=== PATIENT | female | born 1975 | race Caucasian/White ===

== ENCOUNTER 2018-01-06 22:34 | Emergency (ER) | payer OTHER ==
[2018-01-06] MEDS ORDERED: DERMABOND SKIN ADHESIVE TOP ONE (23:25)
[2018-01-06] MEDS ORDERED: IBUPROFEN 400 MG TAB ONE (23:34)
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
== END 2018-01-07 | disposition home or self-care (01) ==
LOC: ER 22:34
PROC: 0HQGXZZ Repair Left Hand Skin, External Approach (ICD-10-PCS; principal; 2018-01-06)
DX: S61.412A Laceration without foreign body of left hand, initial encounter (principal); W26.8XXA Contact with other sharp object(s), not elsewhere classified, initial encounter; Y92.019 Unspecified place in single-family (private) house as the place of occurrence of the external cause; Z88.5 Allergy status to narcotic agent; E78.00 Pure hypercholesterolemia, unspecified; I10 Essential (primary) hypertension; E11.9 Type 2 diabetes mellitus without complications; Z79.84 Long term (current) use of oral hypoglycemic drugs; F17.210 Nicotine dependence, cigarettes, uncomplicated
CPT/HCPCS: 99283

== ENCOUNTER 2018-03-09 16:23 | Emergency (ER) | payer OTHER ==
--- NOTE | 2018-03-09 18:20 | RAD REPORT ---
EXAM DESCRIPTION: RAD - Chest Pa And Lat (2 Views) - 03/09/2018 6:14 pm CLINICAL HISTORY: Left-sided chest pain for 2 weeks, no history of chest trauma COMPARISON: None. TECHNIQUE: PA and lateral views of the chest were obtained. FINDINGS: The lungs are clear. Heart size is normal and central vasculature is within normal limit s. No pleural effusion or pneumothorax seen. An acute bone process is not suspected. There is defor mity in the contour and curvature of the left fifth rib. There may be anterior fusion of the left fou rth and fifth ribs contributing to this abnormality. An acute fracture or rib deformity is not suspec rosina. No aortic abnormality. IMPRESSION: Old developmental or posttraumatic deformity to the left fifth rib. Acute rib process is unlikely. No acute pleural or parenchymal process.
[2018-03-09] MEDS ORDERED: DIAZEPAM 5 MG TABLET ONE (18:27)
[2018-03-09] MEDS ORDERED: KETOROLAC 30 MG/ML INJ ONE (18:28)
[2018-03-09] MEDS ORDERED: NA CHLORIDE 0.9% 1,000 ML ONE (20:16)
[2018-03-09 20:52] LABS: Absolute Lymphocytes (CBC) 2.4 K/uL (0.7-4.9); Absolute Monocytes 0.6 K/uL (0.1-1.3); Absolute Neutrophil 11.3 K/uL (1.8-8.0); Basophils % 0.5 % (0-1.3); Eosinophils % 1.5 % (0-4.4); Hematocrit 44.4 % (36.0-45.0); Lymphocytes % 16.3 % (15.3-44.8); MCH 30.4 pg (27.0-35.0); MCV 88.1 fL (80-100); MPV 7.5 fL (7.6-11.3); Monocytes % 3.8 % (3.3-12.3); RBC Red Blood Cell Count 5.04 M/uL (3.86-4.86)
[2018-03-09 21:07] LABS: Potassium 3.8 mmol/L (3.5-5.1)
[2018-03-09 21:27] LABS: Urine Blood 2+ (NEG); Urine Glucose 2+ (NEG); Urine Protein NEGATIVE (NEG); Urine Specific Gravity 1.025 (1.005-1.030); Urine pH 5.5 (5.0-7.0)
--- NOTE | 2018-03-09 21:38 | RAD REPORT ---
EXAM DESCRIPTION: CT - Chest For Pe Angio - 03/09/2018 9:29 pm CLINICAL HISTORY: Left-sided chest and rib pain COMPARISON: Chest films same TECHNIQUE: Dynamically enhanced 3 mm thick images of the chest were obtained during administration o f approximately 150mL Isovue 370 IV contrast. Coronal and oblique reconstruction images were generate d and reviewed. Exam utilizes a protocol to evaluate the pulmonary arterial tree. All CT scans are performed using dose optimization technique as appropriate and may include automated exposure control or mA/KV adjustment according to patient size. FINDINGS: No pulmonary emboli are identified. The aorta as imaged shows no acute or suspicious finding. No pericardial thickening or effusion. No infiltrate or mass in the lung parenchyma. No pleural effusion or pleural thickening. No mediastinal or hilar suspicious masses. No chest wall masses or abnormal axillary lymphadenopathy. Patient has a normal variant developmental variant of the left fifth rib. There is no suspicion that this is a source for patient's symptoms. IMPRESSION: No pulmonary emboli identified. No other significant or suspicious findings.
--- NOTE | 2018-03-09 21:54 | EDPHYS ---
Physician Documentation [facility] Name: Ava Multani Age: 43 yrs Sex: Female : 1975 Arrival Date: 03/09/2018 Time: 16:26 Bed 18 Private MD: LOUANN VALENZUELA ED Physician Richard Miller HPI: 03/09 20:18 This 43 yrs old Female presents to ER via Ambulatory with complaints of snw Shoulder Pain, RIB PAIN. 20:19 The patient or guardian reports chest pain that is located primarily in the left snw lateral anterior chest. Onset: The symptoms/episode began/occurred suddenly, 3 day(s) ago, and became persistent. The pain does not radiate. Associated signs and symptoms: Pertinent positives: cough, shortness of breath. The chest pain is described as sharp, stabbing. Duration: The patient or guardian reports multiple episodes. Severity of pain: At its worst the pain was severe. The patient has not experienced similar symptoms in the past. The patient has not recently seen a physician. + smoker. 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 - Social history:: Smoking status: Patient uses tobacco products, smokes one pack cigarettes per day. - Ebola Screening: : No symptoms or risks identified at this time. ROS: 20:17 Constitutional: Negative for fever, chills, and weight loss, Eyes: Negative for injury, snw pain, redness, and discharge, ENT: Negative for injury, pain, and discharge, Neck: Negative for injury, pain, and swelling, Cardiovascular: Negative for chest pain, palpitations, and edema, Abdomen/GI: Negative for abdominal pain, nausea, vomiting, diarrhea, and constipation, Back: Negative for injury and pain, : Negative bleeding, discharge, and swelling, MS/Extremity: Negative for injury and deformity, pain to left lateral chest wall Skin: Negative for injury, rash, and discoloration, Neuro: Negative for headache, weakness, numbness, tingling, and seizure. 20:17 Respiratory: Positive for cough, shortness of breath, 2 week coughing spell, feels she may have broken a rib. Exam: 19:21 Constitutional: This is a well developed, well nourished patient who is awake, alert, snw and in no acute distress. Head/Face: Normocephalic, atraumatic. Eyes: Pupils equal round and reactive to light, extra-ocular motions intact. Lids and lashes normal. Conjunctiva and sclera are non-icteric and not injected. Cornea within normal limits. Periorbital areas with no swelling, redness, or edema. ENT: Nares patent. No nasal discharge, no septal abnormalities noted. Tympanic membranes are normal and external auditory canals are clear. Oropharynx with no redness, swelling, or masses, exudates, or evidence of obstruction, uvula midline. Mucous membranes moist. Neck: Trachea midline, no thyromegaly or masses palpated, and no cervical lymphadenopathy. Supple, full range of motion without nuchal rigidity, or vertebral point tenderness. No Meningismus. Cardiovascular: Regular rate and rhythm with a normal S1 and S2. No gallops, murmurs, or rubs. Normal PMI, no JVD. No pulse deficits. Abdomen/GI: Soft, non-tender, with normal bowel sounds. No distension or tympany. No guarding or rebound. No evidence of tenderness throughout. Back: No spinal tenderness. No costovertebral tenderness. Full range of motion. Skin: Warm, dry with normal turgor. Normal color with no rashes, no lesions, and no evidence of cellulitis. MS/ Extremity: Pulses equal, no cyanosis. Neurovascular intact. Full, normal range of motion. Neuro: Awake and alert, GCS 15, oriented to person, place, time, and situation. Cranial nerves II-XII grossly intact. Motor strength 5/5 in all extremities. Sensory grossly intact. Cerebellar exam normal. Normal gait. Psych: Awake, alert, with orientation to person, place and time. Behavior, mood, and affect are within normal limits. 19:21 Chest/axilla: Inspection: normal, Palpation: tenderness, that is moderate, of the left lateral anterior chest, that partially reproduces the patient's complaints. 19:21 Respiratory: mild respiratory distress is noted, Respirations: shallow respirations, splinting, that is moderate, Breath sounds: are clear throughout, Respiratory rate: 22 Vital Signs: 17:01 BP 153 / 91; Pulse 99; Resp 22 S; Temp 97.3(O); Pulse Ox 98% on R/A; Weight 86.18 kg jl7 (R); Height 5 ft. 0 in. (152.40 cm) (R); Pain 10/10; 17:55 BP 160 / 100; Pulse 92; Resp 22; Pulse Ox 96% on R/A; Pain 9/10; ch 20:20 BP 144 / 78; Pulse 75; Resp 19 S; Pulse Ox 98% on R/A; jd3 22:17 BP 131 / 75; Pulse 85; Resp 17 S; Pulse Ox 99% on R/A; jd3 17:01 Body Mass Index 37.11 (86.18 kg, 152.40 cm) jl7 MDM: 17:32 Patient medically screened. snw 20:26 Data reviewed: vital signs, nurses notes. Data interpreted: Pulse oximetry: on room air snw is 98 %. Interpretation: normal. Counseling: I had a detailed discussion with the patient and/or guardian regarding: the historical points, exam findings, and any diagnostic results supporting the discharge/admit diagnosis, the presence of at least one elevated blood pressure reading (>120/80) during this emergency department visit, radiology results. 03/09 20:27 Order name: CBC with Diff; Complete Time: 21:18 snw 03/09 20:27 Order name: Chem 7; Complete Time: 21:18 snw 03/09 17:33 Order name: Chest Pa And Lat (2 Views) XRAY; Complete Time: 18:21 snw 03/09 18:24 Order name: CT Chest For PE Angio; Complete Time: 21:46 snw 03/09 21:26 Order name: Urine Dipstick--Ancillary (enter results); Complete Time: 21:30 rg2 03/09 21:26 Order name: Urine --Ancillary (enter results); Complete Time: 21:30 rg2 03/09 20:27 Order name: Urine Test (obtain specimen); Complete Time: 21:38 snw 03/09 21:55 Order name: INCENTIVE SPIROMETRY snw Administered Medications: 18:05 Drug: TORadol 60 mg Route: IM; Site: right gluteus; ch 19:00 Follow up: Response: No adverse reaction jd3 18:05 Drug: Valium 5 mg Route: PO; ch 19:00 Follow up: Response: No adverse reaction jd3 20:14 Drug: NS 0.9% 1000 ml Route: IV; Rate: 1 bolus; Site: left antecubital; jd3 21:30 Follow up: Response: No adverse reaction; IV Status: Completed infusion; IV Intake: jd3 1000ml 22:05 Drug: Tussionex Pennkinetic ER 5 ml Route: PO; jd3 22:17 Follow up: Response: No adverse reaction jd3 Disposition: 03/10 11:41 Co-signature as Attending Physician, Richard Miller MD I agree with the assessment and [facility] plan of care. Disposition: 03/09/18 21:53 Discharged to Home. Impression: Cough, Clinical rib fracture. - Condition is Stable. - Discharge Instructions: Rib Contusion, Cool Mist Vaporizer, Incentive Spirometer, Cough, Adult, [id number]. - Prescriptions for Zyrtec 10 mg Oral Tablet - take 1 tablet by ORAL route once daily As needed; 20 tablet. Diclofenac Sodium 75 mg Oral Tablet Sustained Release - take 1 tablet by ORAL route 2 times per day; 30 tablet. orphenadrine citrate 100 mg Oral Tablet Sustained Release - take 1 tablet by ORAL route 2 times per day As needed; 20 tablet. - Work release form, Medication Reconciliation Form, Thank You Letter, Antibiotic Education, Prescription Opioid Use form. - Follow up: LOUANN VALENZEULA; When: 1 - 2 days; Reason: Recheck today's complaints, Continuance of care, Re-evaluation by your physician. Follow up: Emergency Department; When: As needed; Reason: Worsening of condition. Signatures: Dispatcher [employer] EDMS Rina Stoll, RN Richard Tan ch, MD MD cha Therrien, Shelly, GAS TURBINE POWERPLANT MECHANIC-C GAS TURBINE POWERPLANT MECHANIC-Csnw James Null RN RN jl7 Tomas Nicole RN RN jd3 Corrections: (The following items were deleted from the chart) 03/09 22:18 21:53 03/09/2018 21:53 Discharged to Home. Impression: Cough; Clinical rib fracture. jd3 Condition is Stable. Forms are Medication Reconciliation Form, Thank You Letter, Antibiotic Education, Prescription Opioid Use. Follow up: LOUANN VALENZUELA; When: 1 - 2 days; Reason: Recheck today's complaints, Continuance of care, Re-evaluation by your physician. Follow up: Emergency Department; When: As needed; Reason: Worsening of condition. snw
--- NOTE | 2018-03-09 21:54 | ER ---
Nurse's Notes [facility] Name: Ava Multani Age: 43 yrs Sex: Female : 1975 Arrival Date: 03/09/2018 Time: 16:26 Bed 18 Private MD: LOUANN VALENZUELA Diagnosis: Cough;Clinical rib fracture Presentation: 03/09 16:58 Presenting complaint: Patient states: Left rib/side pain x 2 weeks. Reports coughing jl7 for 2 weeks, denies trauma, denies shortness of breath. Transition of care: patient was not received from another setting of care. Onset of symptoms was February 25, 2018. Risk Assessment: Do you want to hurt yourself or someone else? Patient reports no desire to harm self or others. Initial Sepsis Screen: Does the patient meet any 2 criteria? No. Patient's initial sepsis screen is negative. Does the patient have a suspected source of infection? No. Patient's initial sepsis screen is negative. Care prior to arrival: None. 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 - Social history:: Smoking status: Patient uses tobacco products, smokes one pack cigarettes per day. - Ebola Screening: : No symptoms or risks identified at this time. Screenin:42 Abuse screen: Denies threats or abuse. Denies injuries from another. Nutritional ch screening: No deficits noted. Tuberculosis screening: No symptoms or risk factors identified. Fall Risk None identified. Assessment: 17:42 General: Appears in no apparent distress. comfortable, Behavior is calm, cooperative, ch appropriate for age. Pain: Pain currently is 7 out of 10 on a pain scale. Neuro: No deficits noted. Respiratory: Airway is patent Respiratory effort is even, unlabored, Breath sounds are clear bilaterally. GI: No signs and/or symptoms were reported involving the gastrointestinal system. : No signs and/or symptoms were reported regarding the genitourinary system. Derm: Skin is pink, warm \T\ dry. 17:55 Reassessment: Patient appears in no apparent distress at this time. Patient and/or family updated on plan of care and expected duration. Pain level reassessed. Patient is alert, oriented x 3, equal unlabored respirations, skin warm/dry/pink. Pain: Complains of pain in anterior aspect of left upper chest, left lateral posterior chest, left lateral anterior chest and left breast Pain radiates to anterior aspect of left shoulder and posterior aspect of left shoulder Pain began gradually, 2 weeks ago, on and off. is very tender. Respiratory: Reports cough that is non-productive, hacking, persistent. 19:00 Reassessment: Patient appears in no apparent distress at this time. No changes from jd3 previously documented assessment. Patient and/or family updated on plan of care and expected duration. Pain level reassessed. Patient is alert, oriented x 3, equal unlabored respirations, skin warm/dry/pink. 20:21 Reassessment: Patient appears in no apparent distress at this time. No changes from jd3 previously documented assessment. Patient and/or family updated on plan of care and expected duration. Pain level reassessed. Patient is alert, oriented x 3, equal unlabored respirations, skin warm/dry/pink. 20:26 Reassessment: CT called to inform about pt has IV access for scan. CT says they cannot jd3 scan pt unless they have labs and urine because of a history of diabetes and no hysterectomy. provider notified. 21:38 Reassessment: Patient appears in no apparent distress at this time. No changes from jd3 previously documented assessment. Patient and/or family updated on plan of care and expected duration. Pain level reassessed. Patient is alert, oriented x 3, equal unlabored respirations, skin warm/dry/pink. pt back from CT. 22:18 Reassessment: Patient appears in no apparent distress at this time. Patient and/or [facility] family updated on plan of care and expected duration. Pain level reassessed. Patient is alert, oriented x 3, equal unlabored respirations, skin warm/dry/pink. Vital Signs: 17:01 BP 153 / 91; Pulse 99; Resp 22 S; Temp 97.3(O); Pulse Ox 98% on R/A; Weight 86.18 kg jl7 (R); Height 5 ft. 0 in. (152.40 cm) (R); Pain 10/10; 17:55 BP 160 / 100; Pulse 92; Resp 22; Pulse Ox 96% on R/A; Pain 9/10; ch 20:20 BP 144 / 78; Pulse 75; Resp 19 S; Pulse Ox 98% on R/A; jd3 22:17 BP 131 / 75; Pulse 85; Resp 17 S; Pulse Ox 99% on R/A; jd3 17:01 Body Mass Index 37.11 (86.18 kg, 152.40 cm) jl7 ED Course: 16:26 Patient arrived in ED. sb2 16:26 LOUANN VALENZUELA is Private Physician. sb2 17:00 Triage completed. jl7 17:01 Arm band placed on right wrist. jl7 17:27 Esther Rose FNP-C [facility]. snw 17:27 Richard Miller MD is Attending Physician. snw 17:41 Rina Stoll, KYARA is Primary Nurse. ch 17:42 No apparent distress. Resting quietly. ch 17:42 Patient has correct armband on for positive identification. Placed in gown. Bed in low ch position. Call light in reach. Side rails up X 1. Adult w/ patient. Pulse ox on. NIBP on. 17:42 No provider procedures requiring assistance completed. Patient did not have IV access ch during this emergency room visit. 18:11 Patient moved to radiology via wheelchair. ml 18:12 X-ray completed. Patient tolerated procedure well. ml 18:12 Patient moved back from radiology. ml 18:12 Chest Pa And Lat (2 Views) XRAY In Process Unspecified. EDMS 18:31 Radiology exam delayed due to lab results not completed at this time. (BUN/Creatinine). vm2 18:53 Radiology exam delayed due to test not completed at this time. vm2 19:11 Radiology exam delayed due to lab results not completed at this time. (BUN/Creatinine). nj 19:24 Missed attempt(s): 20 gauge in right antecubital area. Missed attempt(s): 22 gauge in jd3 right antecubital area. 19:46 Radiology exam delayed due to lab results not completed at this time. (BUN/Creatinine). jg1 20:10 Inserted saline lock: 22 gauge in left antecubital area, using aseptic technique. Blood la1 collected. 20:11 Radiology exam delayed due to lab results not completed at this time. test nj not completed at this time. 20:31 Radiology exam delayed due to lab results not completed at this time. (BUN/Creatinine). jg1 21:11 Radiology exam delayed due to test not completed at this time. jg1 21:[address] jg1 21:28 CT completed. Patient tolerated procedure well. Patient moved back from CT. nj 21:29 CT Chest For PE Angio In Process Unspecified. EDMS 21:47 LOUANN VALENZUELA is Referral Physician. snw 22:06 IV discontinued, intact, bleeding controlled, No redness/swelling at site. Pressure jd3 dressing applied. Administered Medications: 18:05 Drug: TORadol 60 mg Route: IM; Site: right gluteus; 19:00 Follow up: Response: No adverse reaction jd3 18:05 Drug: Valium 5 mg Route: PO; 19:00 Follow up: Response: No adverse reaction jd3 20:14 Drug: NS 0.9% 1000 ml Route: IV; Rate: 1 bolus; Site: left antecubital; jd3 21:30 Follow up: Response: No adverse reaction; IV Status: Completed infusion; IV Intake: jd3 1000ml 22:05 Drug: Tussionex Pennkinetic ER 5 ml Route: PO; jd3 22:17 Follow up: Response: No adverse reaction jd3 Intake: 21:30 IV: 1000ml; Total: 1000ml. jd3 Outcome: 21:53 Discharge ordered by MD. snw 22:15 Discharged to home ambulatory, with family. jd3 22:15 Condition: stable 22:15 Discharge instructions given to patient, family, Instructed on discharge instructions, follow up and referral plans. medication usage, Demonstrated understanding of instructions, follow-up care, medications, Prescriptions given X 3. 22:18 Patient left the ED. jd3 Signatures: Dispatcher [employer] EDID Rina Stoll, KYARA RN Esther Corral, TERRITORY DEVELOPMENT MANAGER-C TERRITORY DEVELOPMENT MANAGER-Chantellew Meena Dang jg1 Marlin Sands Lee, RN RN la1 Henrry Ching Jahala, RN RN jl7 Rhonda Nagel 2 Tomas Nicole RN RN jd3 Krista Gracia2
[2018-03-09] MEDS ORDERED: HYDROCODONE/CHLORPHEN 5 ML/OSYR ONE (22:05)
== END 2018-03-09 22:18 | disposition home or self-care (01) ==
LOC: ER 16:23
DX: S22.39XA Fracture of one rib, unspecified side, initial encounter for closed fracture (principal); I10 Essential (primary) hypertension; F17.210 Nicotine dependence, cigarettes, uncomplicated; Z88.5 Allergy status to narcotic agent
CPT/HCPCS: 36415; 71046; 71275; 80048; 81003; 81025; 85025; 96360; 96372; 99284; J7030; Q9967

== ENCOUNTER 2018-11-08 04:22 | Emergency (ER) | payer OTHER, SELFPAY ==
[2018-11-08] MEDS ORDERED: LIDOCAINE 1% MPF 5 ML VIAL ONE (05:35)
--- NOTE | 2018-11-08 05:43 | EDPHYS ---
Physician Documentation [facility] Name: Ava Multani Age: 43 yrs Sex: Female : 1975 Arrival Date: 11/08/2018 Time: 04:25 Bed 15 Private MD: LOUANN VALENZUELA ED Physician Marvin Melissa HPI: 11/08 05:23 This 43 yrs old Female presents to ER via Ambulatory with complaints of rn Insect Bite. 05:23 The patient presents with an abscess of the left inner thigh. Description: The affected rn area is small, localized, erythematous, fluctuant. Onset: The symptoms/episode began/occurred 1 week(s) ago. Possible cause(s): unknown. Modifying factors: the symptoms are alleviated by nothing, the symptoms are aggravated by squeezing the lesion and expressing the contents, touching. Severity of symptoms: At their worst the symptoms were mild, in the emergency department the symptoms are unchanged. The patient has not experienced similar symptoms in the past. The patient has not recently seen a physician. 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 - Social history:: Smoking status: Patient uses tobacco products, smokes one pack cigarettes per day. - Ebola Screening: : Patient negative for fever greater than or equal to 101.5 degrees Fahrenheit, and additional compatible Ebola Virus Disease symptoms Patient denies exposure to infectious person Patient denies travel to an Ebola-affected area in the 21 days before illness onset. - Family history:: not pertinent. - Hospitalizations: : No recent hospitalization is reported. ROS: 05:23 Constitutional: Negative for fever, chills, and weight loss, Skin: + swollen area left rn inner thigh Exam: 05:23 Constitutional: This is a well developed, well nourished patient who is awake, alert, rn and in no acute distress. Skin: Warm, dry, + left inner/upper thigh with 1.5 cm area fluctuance, has a head to it, mild surrounding erythema Vital Signs: 04:41 BP 140 / 78; Pulse 84; Resp 17; Temp 98.5; Pulse Ox 98% ; Weight 83.91 kg; Height 5 ft. rr5 (152.40 cm); Pain 10/10; 05:50 BP 126 / 70; Pulse 80; Resp 16; Pulse Ox 99% ; Pain 2/10; rr5 04:41 Body Mass Index 36.13 (83.91 kg, 152.40 cm) rr5 Procedures: 05:39 I \T\ D: Incision and drainage was performed for an abscess of the left proximal thigh. I rn \T\ D: Prepped with Betadine, Anesthetized with 3 ml's 1% Lidocaine. Incised with #11 blade. Drained small amount purulent fluid. serosanguinous fluid. Dressing: sterile 4x4 gauze, the patient tolerated the procedure well, Wound too shallow to pack. . MDM: 04:55 Patient medically screened. rn 05:39 Differential diagnosis: abscess, cellulitis. Data reviewed: vital signs, nurses notes, rn and as a result, I will discharge patient. Counseling: I had a detailed discussion with the patient and/or guardian regarding: the historical points, exam findings, and any diagnostic results supporting the discharge/admit diagnosis, the need for outpatient follow up, to return to the emergency department if symptoms worsen or persist or if there are any questions or concerns that arise at home. Response to treatment: the patient's symptoms have mildly improved after treatment, and as a result, I will discharge patient. Administered Medications: 05:30 Drug: Lidocaine (1 %) 5 ml {Note: given by dr. melissa.} Volume: 5 ml; Route: rr5 Infiltration; 05:48 Follow up: Response: No adverse reaction rr5 Disposition: 11/08/18 05:42 Discharged to Home. Impression: Cutaneous abscess of left lower limb. - Condition is Stable. - Discharge Instructions: Skin Abscess, Incision and Drainage. - Prescriptions for Clindamycin HCl 300 mg Oral Capsule - take 1 capsule by ORAL route every 6 hours for 10 days; 40 capsule. - Medication Reconciliation Form, Thank You Letter, Antibiotic Education, Prescription Opioid Use form. - Follow up: Private Physician; When: As needed; Reason: Recheck today's complaints, Re-evaluation by your physician. - Problem is new. - Symptoms have improved. Signatures: Marvin Melissa MD MD rn Rohan Gloria RN RN rr5 Corrections: (The following items were deleted from the chart) 05:52 05:42 11/08/2018 05:42 Discharged to Home. Impression: Cutaneous abscess of left lower rr5 limb. Condition is Stable. Forms are Medication Reconciliation Form, Thank You Letter, Antibiotic Education, Prescription Opioid Use. Follow up: Private Physician; When: As needed; Reason: Recheck today's complaints, Re-evaluation by your physician. Problem is new. Symptoms have improved. rn
--- NOTE | 2018-11-08 05:43 | ER ---
Nurse's Notes [facility] Name: Ava Multani Age: 43 yrs Sex: Female : 1975 Arrival Date: 11/08/2018 Time: 04:25 Bed 15 Private MD: LOUANN VALENZUELA Diagnosis: Cutaneous abscess of left lower limb Presentation: 11/08 04:35 Presenting complaint: Patient states: I have like a pimple in my left thigh about a 1 rr5 week ago, it causes pain and discomfort. but today it getting worst I don't know if that is a spider bite because I'm working on a shed. 04:35 Transition of care: patient was not received from another setting of care. Onset of rr5 symptoms. Risk Assessment: Do you want to hurt yourself or someone else? Patient reports no desire to harm self or others. Initial Sepsis Screen: Does the patient meet any 2 criteria? No. Patient's initial sepsis screen is negative. Does the patient have a suspected source of infection? Yes: Skin breakdown/wound. Care prior to arrival: None. 04:35 Method Of Arrival: Ambulatory rr5 04:35 Acuity: ADDIS 4 rr5 Triage Assessment: 04:40 Bite description: bite sustained to left inguinal area by a spider, animal information: rr5 vaccination(s) is unknown, patient is not sure if bitten by spider as she verbalized. 04:40 General: Appears in no apparent distress. uncomfortable, Behavior is calm, cooperative, rr5 appropriate for age. 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 - Social history:: Smoking status: Patient uses tobacco products, smokes one pack cigarettes per day. - Ebola Screening: : Patient negative for fever greater than or equal to 101.5 degrees Fahrenheit, and additional compatible Ebola Virus Disease symptoms Patient denies exposure to infectious person Patient denies travel to an Ebola-affected area in the 21 days before illness onset. - Family history:: not pertinent. - Hospitalizations: : No recent hospitalization is reported. Screenin:44 Abuse screen: Denies threats or abuse. Denies injuries from another. Nutritional rr5 screening: No deficits noted. Tuberculosis screening: No symptoms or risk factors identified. Fall Risk None identified. Total Patel Fall Scale indicates No Risk (0-24 pts). Assessment: 04:45 General: Appears in no apparent distress. uncomfortable, Behavior is calm, cooperative, rr5 appropriate for age. Pain: Complains of pain in left inguinal Pain does not radiate. Pain currently is 10 out of 10 on a pain scale. Quality of pain is described as aching, Pain began gradually, Is intermittent. Neuro: Level of Consciousness is awake, alert, obeys commands. Cardiovascular: Capillary refill < 3 seconds Patient's skin is warm and dry. Respiratory: Airway is patent Respiratory effort is even, unlabored, Respiratory pattern is regular, symmetrical. GI: No signs and/or symptoms were reported involving the gastrointestinal system. : No signs and/or symptoms were reported regarding the genitourinary system. EENT: No signs and/or symptoms were reported regarding the EENT system. Derm: Skin pimple like appearance redness and swelling around the area noted. Skin is pink, warm \T\ dry. Denies fever. Musculoskeletal: Capillary refill < 3 seconds, Range of motion: intact in all extremities. 05:49 Reassessment: Patient appears in no apparent distress at this time. Patient is alert, rr5 oriented x 3, equal unlabored respirations, skin warm/dry/pink. discharge instruction given and explained without complaints made. Patient states feeling better. Patient states symptoms have improved. Vital Signs: 04:41 BP 140 / 78; Pulse 84; Resp 17; Temp 98.5; Pulse Ox 98% ; Weight 83.91 kg; Height 5 ft. rr5 (152.40 cm); Pain 10/10; 05:50 BP 126 / 70; Pulse 80; Resp 16; Pulse Ox 99% ; Pain 2/10; rr5 04:41 Body Mass Index 36.13 (83.91 kg, 152.40 cm) rr5 ED Course: 04:25 Patient arrived in ED. do 04:25 LOUANN VALENZUELA is Private Physician. do 04:28 Dia Bishop, KYARA is Primary Nurse. ed1 04:36 Gloria, Rohan, RN is Primary Nurse. rr5 04:41 Triage completed. rr5 04:44 Arm band placed on. rr5 04:45 Patient has correct armband on for positive identification. Placed in gown. Bed in low rr5 position. Call light in reach. 04:55 Marvin Melissa MD is Attending Physician. rn 05:35 Assist provider with I \T\ D: of an abscess on left inguinal area Set up I\T\D tray. rr 5 Performed by Marvin Melissa MD Dressing with Neosporin and 4X4s, Patient tolerated well. assisted by dia SPARROW. 05:50 Patient did not have IV access during this emergency room visit. rr5 Administered Medications: 05:30 Drug: Lidocaine (1 %) 5 ml {Note: given by dr. melissa.} Volume: 5 ml; Route: rr5 Infiltration; 05:48 Follow up: Response: No adverse reaction rr5 Outcome: 05:42 Discharge ordered by MD. rn 05:50 Discharged to home ambulatory. rr5 05:50 Condition: stable 05:50 Discharge instructions given to patient, Instructed on discharge instructions, follow up and referral plans. medication usage, Demonstrated understanding of instructions, follow-up care, medications, Prescriptions given X 1. 05:52 Patient left the ED. rr5 Signatures: Marvin Melissa MD MD rn Riggs, Dia RN RN ed1 Rosa Guo Raymond, RN RN rr5
== END 2018-11-08 05:52 | disposition home or self-care (01) ==
LOC: ER 04:22
PROC: 0J9M0ZZ Drainage of Left Upper Leg Subcutaneous Tissue and Fascia, Open Approach (ICD-10-PCS; principal; 2018-11-08)
DX: L02.416 Cutaneous abscess of left lower limb (principal); I10 Essential (primary) hypertension; E11.9 Type 2 diabetes mellitus without complications; E78.00 Pure hypercholesterolemia, unspecified; F17.210 Nicotine dependence, cigarettes, uncomplicated; Z88.5 Allergy status to narcotic agent
CPT/HCPCS: 99283

== ENCOUNTER 2019-05-06 19:48 | Emergency (ER) | payer SELFPAY ==
[2019-05-06] MEDS ORDERED: INSULIN -REGULAR HUMAN 50 UNIT/0.5 ML ML ONE ×2 (20:22→21:43)
[2019-05-06] MEDS ORDERED: NA CHLORIDE 0.9% 1,000 ML ONE (20:22)
[2019-05-06 20:58] LABS: Absolute Lymphocytes (CBC) 2.8 K/uL (0.7-4.9); Basophils % 0.8 % (0-1.3); Hematocrit 45.9 % (36.0-45.0); Lymphocytes % 25.2 % (15.3-44.8); MPV 8.2 fL (7.6-11.3); RBC Red Blood Cell Count 5.17 M/uL (3.86-4.86)
[2019-05-06 21:26] LABS: BUN Blood Urea Nitrogen 5 mg/dL (7-18); Bicarbonate 23 mmol/L (21-32); Sodium Level 134 mmol/L (136-145)
[2019-05-06 21:31] LABS: Glucose Level 556 mg/dL (74-106)
[2019-05-06] MEDS ORDERED: KCL 20 MEQ/100 mL IVPB 20 MEQ/100 ML BAG IV ONE (22:00)
[2019-05-06] MEDS ORDERED: NS KCL 20MEQ 1,000 ML IV ONE (22:22)
--- NOTE | 2019-05-06 22:57 | ER ---
Nurse's Notes [facility] Name: Ava Multani Age: 44 yrs Sex: Female : 1975 Arrival Date: 05/06/2019 Time: 19:50 Bed 4 Private MD: Diagnosis: Hyperglycemia, unspecified;Dehydration;Hypokalemia Presentation: 05/06 19:53 Presenting complaint: Patient states: that she thinks her blood sugar is high because fc her "head feels like its swimming" and her "teeth hurt". Pt has not been taking her medications as she is suppose to because she cannot afford them at this time. Transition of care: patient was not received from another setting of care. Onset of symptoms was May 06, 2019. Risk Assessment: Do you want to hurt yourself or someone else? Patient reports no desire to harm self or others. Initial Sepsis Screen: Does the patient meet any 2 criteria? HR > 90 bpm. Yes Does the patient have a suspected source of infection? No. Patient's initial sepsis screen is negative. Care prior to arrival: None. 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 - Social history:: Smoking status: Patient uses tobacco products, smokes 1.5 packs per day, Patient/guardian denies using alcohol, street drugs. - Ebola Screening: : Patient negative for fever greater than or equal to 101.5 degrees Fahrenheit, and additional compatible Ebola Virus Disease symptoms Patient denies exposure to infectious person Patient denies travel to an Ebola-affected area in the 21 days before illness onset. Screenin:53 Abuse screen: Denies threats or abuse. Nutritional screening: No deficits noted. fc Tuberculosis screening: No symptoms or risk factors identified. Fall Risk None identified. Assessment: 20:30 General: Appears uncomfortable, Behavior is calm, cooperative, appropriate for age. ea Pain: Denies pain. Neuro: Level of Consciousness is awake, alert, obeys commands, Oriented to person, place, time, situation. Cardiovascular: Patient's skin is warm and dry. Respiratory: Airway is patent Respiratory effort is even, unlabored, Respiratory pattern is regular, symmetrical. Derm: Skin is pink, warm \\T\\ dry. 21:27 Reassessment: Patient and/or family updated on plan of care and expected duration. Pain ea level reassessed. Patient is alert, oriented x 3, equal unlabored respirations, skin warm/dry/pink. 22:15 Reassessment: Patient appears in no apparent distress at this time. Patient and/or rr5 family updated on plan of care and expected duration. Pain level reassessed. Patient is alert, oriented x 3, equal unlabored respirations, skin warm/dry/pink. no complaints made awaiting for results. 23:14 Reassessment: Patient appears in no apparent distress at this time. Patient is alert, rr5 oriented x 3, equal unlabored respirations, skin warm/dry/pink. for discharge after the potassium infusion. 23:58 Reassessment: Patient appears in no apparent distress at this time. Patient and/or rr5 family updated on plan of care and expected duration. Pain level reassessed. Patient is alert, oriented x 3, equal unlabored respirations, skin warm/dry/pink. no complaints made. 05/07 01:00 Reassessment: Patient appears in no apparent distress at this time. No changes from rr5 previously documented assessment. Patient and/or family updated on plan of care and expected duration. Pain level reassessed. 02:05 Reassessment: Patient appears in no apparent distress at this time. Patient is alert, rr5 oriented x 3, equal unlabored respirations, skin warm/dry/pink. discharge instruction given and explained without complaints made, verbalized understanding. Patient states feeling better. Patient states symptoms have improved. 02:15 Reassessment: post prandial CBG result 372mg/dl ED provider informed. advised to take rr5 her due anti diabetes medication. Vital Signs: 05/06 19:53 BP 150 / 94; Pulse 106; Resp 18; Temp 98.1(O); Pulse Ox 96% on R/A; Weight 83.91 kg fc (R); Height 5 ft. 0 in. (152.40 cm) (R); Pain 5/10; 20:57 BP 139 / 88; Pulse 80; Resp 18; Pulse Ox 98% ; ea 22:00 BP 142 / 77; Pulse 90; Resp 18; Pulse Ox 98% ; ea 23:27 BP 109 / 65; Pulse 83; Resp 18; Pulse Ox 95% on R/A; ea 05/07 01:00 BP 115 / 85; Pulse 89; Resp 19; Pulse Ox 98% on R/A; rr5 02:00 BP 112 / 87; Pulse 85; Resp 20; Temp 97.4; Pulse Ox 99% on R/A; Pain 0/10; rr5 05/06 19:53 Body Mass Index 36.13 (83.91 kg, 152.40 cm) ED Course: 05/06 19:50 Patient arrived in ED. as 19:53 Arm band placed on Patient placed in an exam room, on a stretcher. fc 19:53 Patient has correct armband on for positive identification. Bed in low position. Call light in reach. Pulse ox on. NIBP on. 19:53 No provider procedures requiring assistance completed. 19:59 [facility]C [facility]. snw 19:59 Marvin Melissa MD is Attending Physician. snw 20:05 Triage completed. 20:18 Rohan Gloria, RN is Primary Nurse. rr5 20:30 Inserted saline lock: 22 gauge in left hand, using aseptic technique. ea 05/07 00:25 Diet: Patient given snack. Patient given water. Tolerated well. rr5 02:17 IV discontinued, intact, bleeding controlled, No redness/swelling at site. Pressure rr5 dressing applied. Administered Medications: 05/06 20:30 Drug: NS 0.9% 1000 ml Route: IV; Rate: 1 bolus; Site: left hand; ea 23:00 Follow up: Response: No adverse reaction; IV Status: Completed infusion; IV Intake: ea 1000ml 20:35 Drug: Insulin Regular Human 8 units {Co-Signature: rr5 (Rohan Gloria RN).} Route: IVP; ea Site: left hand; 23:29 Follow up: Response: No adverse reaction; Blood sugar is lowered ea 21:50 Drug: Insulin Regular Human 8 units {Co-Signature: missael (Yolanda Whiting RN).} Route: IVP; rr5 Site: left hand; 23:35 Follow up: Response: No adverse reaction rr5 22:13 Drug: Potassium Chloride 20 mEq Route: IV; Rate: calculated rate; Site: left hand; rr5 23:57 Follow up: Response: No adverse reaction; IV Status: Completed infusion; IV Intake: rr5 100ml 22:30 Drug: NS 0.9% with KCl 20 mEq/L 1000 ml Route: IV; Rate: 250 ml/hr; Site: left hand; ea 05/07 02:19 Follow up: Response: No adverse reaction; IV Status: Completed infusion; IV Intake: rr5 1000ml Intake: 05/06 23:00 IV: 1000ml; Total: 1000ml. ea 23:57 IV: 100ml; Total: 1100ml. rr5 05/07 02:19 IV: 1000ml; Total: 2100ml. rr5 Outcome: 05/06 22:57 Discharge ordered by . rn 05/07 02:06 Discharged to home ambulatory. rr5 Condition: stable Discharge instructions given to patient, Instructed on discharge instructions, follow up and referral plans. medication usage, Demonstrated understanding of instructions, follow-up care, medications, Prescriptions given X 1. 02:22 Patient left the ED. rr5 Signatures: Esther Rose, VOLTAGE REGULATOR ASSEMBLER-C VOLTAGE REGULATOR ASSEMBLER-Csnw Jessenia Coughlin RN RN fc Martinez, Amelia as Nieto, Roman, MD MD rn Antunez, Elena, RN RN ea Roque, Raymond, RN RN rr5 Rohan Gloria RN rr5 Yolanda Whiting RN, ea
--- NOTE | 2019-05-06 22:58 | EDPHYS ---
Physician Documentation [facility] Name: Ava Multani Age: 44 yrs Sex: Female : 1975 Arrival Date: 05/06/2019 Time: 19:50 Bed 4 Private MD: ED Physician Marvin Melissa HPI: 05/06 20:22 This 44 yrs old Female presents to ER via Ambulatory with complaints of High snw Blood Sugar. 20:22 The patient or guardian reports generalized fatigue, that was potentially precipitated snw by not taking medications second to cost. Onset: The symptoms/episode began/occurred gradually. Current symptoms: In the emergency department the patient's symptoms are unchanged from the initial presentation. The patient has experienced similar episodes in the past. The patient has not recently seen a physician, the patient's primary care provider is Dr. Esteban Chandra, [facility]. 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 - Social history:: Smoking status: Patient uses tobacco products, smokes 1.5 packs per day, Patient/guardian denies using alcohol, street drugs. - Ebola Screening: : Patient negative for fever greater than or equal to 101.5 degrees Fahrenheit, and additional compatible Ebola Virus Disease symptoms Patient denies exposure to infectious person Patient denies travel to an Ebola-affected area in the 21 days before illness onset. ROS: 20:18 Constitutional: Negative for fever, chills, and weight loss, Eyes: Negative for injury, snw pain, redness, and discharge, ENT: Negative for injury, pain, and discharge, Neck: Negative for injury, pain, and swelling, Cardiovascular: Negative for chest pain, palpitations, and edema, Respiratory: Negative for shortness of breath, cough, wheezing, and pleuritic chest pain, Abdomen/GI: Negative for abdominal pain, nausea, vomiting, diarrhea, and constipation, Back: Negative for injury and pain, : Negative for injury, bleeding, discharge, and swelling, MS/Extremity: Negative for injury and deformity, Skin: Negative for injury, rash, and discoloration, Neuro: Negative for headache, weakness, numbness, tingling, and seizure, "feels swimmy" Psych: Negative for depression, anxiety, suicide ideation, homicidal ideation, and hallucinations. 20:19 Endocrine: Positive for polydipsia, polyphagia, polyuria, pt not taking medications snw prescribed 2nd to lack of funds. Exam: 20:18 Constitutional: This is a well developed, well nourished patient who is awake, alert, snw and in no acute distress. Head/Face: Normocephalic, atraumatic. Eyes: Pupils equal round and reactive to light, extra-ocular motions intact. Lids and lashes normal. Conjunctiva and sclera are non-icteric and not injected. Cornea within normal limits. Periorbital areas with no swelling, redness, or edema. ENT: Nares patent. No nasal discharge, no septal abnormalities noted. Tympanic membranes are normal and external auditory canals are clear. Oropharynx with no redness, swelling, or masses, exudates, or evidence of obstruction, uvula midline. Mucous membranes moist. Neck: Trachea midline, no thyromegaly or masses palpated, and no cervical lymphadenopathy. Supple, full range of motion without nuchal rigidity, or vertebral point tenderness. No Meningismus. Chest/axilla: Normal chest wall appearance and motion. Nontender with no deformity. No lesions are appreciated. 20:18 Abdomen/GI: Soft, non-tender, with normal bowel sounds. No distension or tympany. No guarding or rebound. No evidence of tenderness throughout. Back: No spinal tenderness. No costovertebral tenderness. Full range of motion. Skin: Warm, dry with normal turgor. Normal color with no rashes, no lesions, and no evidence of cellulitis. MS/ Extremity: Pulses equal, no cyanosis. Neurovascular intact. Full, normal range of motion. Neuro: Awake and alert, GCS 15, oriented to person, place, time, and situation. Cranial nerves II-XII grossly intact. Motor strength 5/5 in all extremities. Sensory grossly intact. Cerebellar exam normal. Normal gait. Psych: Awake, alert, with orientation to person, place and time. Behavior, mood, and affect are within normal limits. 20:18 Cardiovascular: Rate: tachycardic, Rhythm: regular, Pulses: no pulse deficits are appreciated, Heart sounds: murmur, systolic, grade 3 over 6, Edema: is not appreciated. 20:18 Respiratory: the patient does not display signs of respiratory distress, Respirations: shallow respirations, tachypnea, Breath sounds: wheezing: expiratory that is mild, is heard diffusely. Vital Signs: 19:53 BP 150 / 94; Pulse 106; Resp 18; Temp 98.1(O); Pulse Ox 96% on R/A; Weight 83.91 kg fc (R); Height 5 ft. 0 in. (152.40 cm) (R); Pain 5/10; 20:57 BP 139 / 88; Pulse 80; Resp 18; Pulse Ox 98% ; ea 22:00 BP 142 / 77; Pulse 90; Resp 18; Pulse Ox 98% ; ea 23:27 BP 109 / 65; Pulse 83; Resp 18; Pulse Ox 95% on R/A; ea 1011 01:00 BP 115 / 85; Pulse 89; Resp 19; Pulse Ox 98% on R/A; rr5 02:00 BP 112 / 87; Pulse 85; Resp 20; Temp 97.4; Pulse Ox 99% on R/A; Pain 0/10; rr5 05/06 19:53 Body Mass Index 36.13 (83.91 kg, 152.40 cm) fc MDM: 05/06 20:11 Patient medically screened. snw 22:33 Data reviewed: vital signs, nurses notes. Data interpreted: Pulse oximetry: on room air snw is 98 %. Interpretation: normal. Transition of care: After a detail discussion of the patient's case, care is transferred to Marvin Melissa MD. 22:52 Differential diagnosis: hyperglycemia. Counseling: I had a detailed discussion with the rn patient and/or guardian regarding: the historical points, exam findings, and any diagnostic results supporting the discharge/admit diagnosis, lab results, the need for outpatient follow up, to return to the emergency department if symptoms worsen or persist or if there are any questions or concerns that arise at home. Special discussion: I discussed with the patient/guardian in detail that at this point there is no indication for admission to the hospital. It is understood, however, that if the symptoms persist or worsen the patient needs to return immediately for re-evaluation. ED course: No AG, neg ketones, glucose improving, will dc home. . 05/06 20:07 Order name: NOVA; Complete Time: 20:10 ea 05/06 20:11 Order name: CBC with Diff; Complete Time: 21:06 snw 05/06 20:11 Order name: Chem 7; Complete Time: 21:44 snw 05/06 20:11 Order name: Acetone, Serum; Complete Time: 21:44 snw 05/06 20:11 Order name: Blood Culture Adult (2) snw 05/06 20:15 Order name: Osmolality, Serum; Complete Time: 22:04 snw 05/06 21:22 Order name: NOVA; Complete Time: 21:35 ar5 05/06 22:42 Order name: NOVA; Complete Time: 22:52 ar5 05/07 02:18 Order name: NOVA: post prandial rr5 05/06 21:08 Order name: FSBS: hourly; Complete Time: 21:22 snw Administered Medications: 20:30 Drug: NS 0.9% 1000 ml Route: IV; Rate: 1 bolus; Site: left hand; ea 23:00 Follow up: Response: No adverse reaction; IV Status: Completed infusion; IV Intake: ea 1000ml 20:35 Drug: Insulin Regular Human 8 units {Co-Signature: rr5 (Rohan Gloria RN).} Route: IVP; ea Site: left hand; 23:29 Follow up: Response: No adverse reaction; Blood sugar is lowered ea 21:50 Drug: Insulin Regular Human 8 units {Co-Signature: ea (Yolanda Whiting RN).} Route: IVP; rr5 Site: left hand; 23:35 Follow up: Response: No adverse reaction rr5 22:13 Drug: Potassium Chloride 20 mEq Route: IV; Rate: calculated rate; Site: left hand; rr5 23:57 Follow up: Response: No adverse reaction; IV Status: Completed infusion; IV Intake: rr5 100ml 22:30 Drug: NS 0.9% with KCl 20 mEq/L 1000 ml Route: IV; Rate: 250 ml/hr; Site: left hand; ea 05/07 02:19 Follow up: Response: No adverse reaction; IV Status: Completed infusion; IV Intake: rr5 1000ml Disposition: 03:22 Co-signature as Attending Physician, Marvin Melissa MD. rn Disposition: 05/06/19 22:57 Discharged to Home. Impression: Hyperglycemia, unspecified, Dehydration, Hypokalemia. - Condition is Stable. - Discharge Instructions: Dehydration, Adult, Diabetes and Sick Day Management, Potassium Content of Foods, Hyperglycemia, Blood Glucose Monitoring, Adult, Hypokalemia, Rehydration, Adult. - Prescriptions for promethazine 25 mg Oral Tablet - take 1 tablet by ORAL route every 6 hours As needed; 20 tablet. - Medication Reconciliation Form, Thank You Letter, Antibiotic Education, Prescription Opioid Use form. - Follow up: Private Physician; When: 2 - 3 days; Reason: Recheck today's complaints, Continuance of care, Re-evaluation by your physician. Follow up: Emergency Department; When: As needed; Reason: Worsening of condition. Signatures: Dispatcher [employer] EDMS Esther Rose, AIR CONDITIONING UNIT ASSEMBLER-C AIR CONDITIONING UNIT ASSEMBLER-Csnw Jessenia Coughlin RN Marvin Luis MD MD rn Antunez, Elena, RN RN ea Roque, Raymond, RN RN rr5 Rohan Gloria RN rr5 Yolanda Whiting RN, ea Corrections: (The following items were deleted from the chart) 05/06 20:22 20:18 Constitutional: Negative for fever, chills, and weight loss, Eyes: Negative for snw injury, pain, redness, and discharge, ENT: Negative for injury, pain, and discharge, Neck: Negative for injury, pain, and swelling, Cardiovascular: Negative for chest pain, palpitations, and edema, Respiratory: Negative for shortness of breath, cough, wheezing, and pleuritic chest pain, Abdomen/GI: Negative for abdominal pain, nausea, vomiting, diarrhea, and constipation, Back: Negative for injury and pain, : Negative for injury, bleeding, discharge, and swelling, MS/Extremity: Negative for injury and deformity, Skin: Negative for injury, rash, and discoloration, Neuro: Negative for headache, weakness, numbness, tingling, and seizure, Psych: Negative for depression, anxiety, suicide ideation, homicidal ideation, and hallucinations, snw 05/07 02:22 05/06 22:57 05/06/2019 22:57 Discharged to Home. Impression: Hyperglycemia, rr5 unspecified; Dehydration; Hypokalemia. Condition is Stable. Discharge Instructions: Dehydration, Adult, Diabetes and Sick Day Management, Potassium Content of Foods, Hyperglycemia, Blood Glucose Monitoring, Adult, Hypokalemia, Rehydration, Adult. Prescriptions for promethazine 25 mg Oral Tablet - take 1 tablet by ORAL route every 6 hours As needed; 20 tablet. and Forms are Medication Reconciliation Form, Thank You Letter, Antibiotic Education, Prescription Opioid Use. Follow up: Private Physician; When: 2 - 3 days; Reason: Recheck today's complaints, Continuance of care, Re-evaluation by your physician. Follow up: Emergency Department; When: As needed; Reason: Worsening of condition. rn
[2019-05-07 02:37] VITALS: BP 112/87; TEMP 97.4; O2SAT 99
== END 2019-05-07 02:22 | disposition home or self-care (01) ==
LOC: ER 19:48
DX: E86.0 Dehydration (principal); E87.6 Hypokalemia; F17.210 Nicotine dependence, cigarettes, uncomplicated; Z88.5 Allergy status to narcotic agent
CPT/HCPCS: 36415; 80048; 82010; 82962; 83930; 85025; 87040; 96361; 96365; 96366; 96375; 99284; J7030

== ENCOUNTER 2019-08-22 18:49 | Emergency (ER) | payer SELFPAY ==
--- OUTSIDE RECORDS SUMMARY | 2019-08-22 18:50 | XMS REPORT ---
:1975 [facility] Address [address] [place] [address] Dr. Barros [address] [place] [id number] Care Team Providers Name Role Phone Unavailable Unavailable Unavailable Problems This patient has no known problems. Allergies, Adverse Reactions, Alerts This patient has no known allergies or adverse reactions. Medications This patient has no known medications.
[2019-08-22] MEDS ORDERED: MEPERIDINE HCL 25 MG/0.5 ML ONE (20:01)
[2019-08-22] MEDS ORDERED: ONDANSETRON 4 MG/2 ML VIAL ONE (20:02)
[2019-08-22 20:24] LABS: Absolute Lymphocytes (CBC) 3.7 K/uL (0.7-4.9); Basophils % 1.1 % (0-1.3); Hematocrit 42.1 % (36.0-45.0); Lymphocytes % 34.6 % (15.3-44.8); MPV 7.8 fL (7.6-11.3); RBC Red Blood Cell Count 4.84 M/uL (3.86-4.86)
[2019-08-22 20:25] LABS: Urine Blood NEGATIVE (NEG); Urine Glucose 2+ (NEG); Urine Protein NEGATIVE (NEG)
[2019-08-22 20:33] LABS: ALT/SGPT 21 U/L (12-78); AST/SGOT 12 U/L (15-37); Albumin 3.5 g/dL (3.4-5.0); Alkaline Phosphatase 75 U/L (45-117); BUN Blood Urea Nitrogen 13 mg/dL (7-18); Bicarbonate 27 mmol/L (21-32); Bilirubin Direct < 0.1 mg/dL (0-0.2); Bilirubin Total 0.2 mg/dL (0.2-1.0); Glucose Level 260 mg/dL (74-106); Lipase 157 U/L (73-393); Potassium 3.5 mmol/L (3.5-5.1); Protein, Total 6.9 g/dL (6.4-8.2); Sodium Level 136 mmol/L (136-145)
[2019-08-22 20:34] LABS: Urine Bacteria NONE SEEN /HPF (<20); Urine RBC NONE SEEN /HPF (NONE SEEN)
[2019-08-22 20:35] LABS: Urine Culture Reflex Order NOT NEEDED
[2019-08-22 20:55] LABS: Blood Morphology Comment NOT SEEN (NOT SEEN); Platelet Estimate ADEQ; Urine White Blood Cell Casts OK
[2019-08-22] MEDS ORDERED: CEFTRIAXONE/SWI 1gm 1 GM/10 ML SYR ONE (23:08)
--- NOTE | 2019-08-22 23:17 | EDPHYS ---
Physician Documentation [facility] Name: Ava Multani Age: 44 yrs Sex: Female : 1975 Arrival Date: 08/22/2019 Time: 18:51 Bed 17 Private MD: ED Physician Marvin Melissa HPI: 08/22 19:52 This 44 yrs old Female presents to ER via Ambulatory with complaints of rn Abdominal Pain, Nausea. 19:52 The patient presents to the emergency department with nausea, vomiting, abdominal pain, rn of the suprapubic area. Onset: The symptoms/episode began/occurred 2 week(s) ago. Possible causes: unknown. The symptoms are aggravated by movement, pressure, The symptoms are alleviated by nothing. Severity of symptoms: At their worst the symptoms were moderate in the emergency department the symptoms are unchanged. The patient has not experienced similar symptoms in the past. The patient has not recently seen a physician. Reports intermittent lower abd pain, assoc with nausea and vomiting, no diarrhea, no fever, no trauma, reports for 2 weeks. Denies having this before. . 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 - Coronavirus screen:: The patient has NOT traveled to [place], [place], or [place] in the past 14 days. - Social history:: Smoking status: Patient reports the use of cigarette tobacco products. - Family history:: not pertinent. - Ebola Screening: : Patient negative for fever greater than or equal to 101.5 degrees Fahrenheit, and additional compatible Ebola Virus Disease symptoms Patient denies exposure to infectious person. - Hospitalizations: : No recent hospitalization is reported. ROS: 19:52 Constitutional: Negative for fever, chills, and weight loss, Eyes: Negative for injury, rn pain, redness, and discharge, Neck: Negative for injury, pain, and swelling, Cardiovascular: Negative for chest pain, palpitations, and edema, Respiratory: Negative for shortness of breath, cough, wheezing, and pleuritic chest pain, Abdomen/GI: + abd pain/nausea/vomiting MS/Extremity: Negative for injury and deformity, Skin: Negative for injury, rash, and discoloration, Neuro: Negative for headache, weakness, numbness, tingling, and seizure. Exam: 19:52 Constitutional: This is a well developed, well nourished patient who is awake, alert, rn and in no acute distress. Head/Face: Normocephalic, atraumatic. ENT: MMM Cardiovascular: Regular rate and rhythm. No pulse deficits. Respiratory: No increased work of breathing, no retractions or nasal flaring. Abdomen/GI: Soft, non-tender, with normal bowel sounds. No distension or tympany. No guarding or rebound. No evidence of tenderness throughout. MS/ Extremity: Pulses equal, no cyanosis. Neurovascular intact. Full, normal range of motion. Equal circumference. Neuro: Awake and alert, GCS 15, oriented to person, place, time, and situation. Cranial nerves II-XII grossly intact. Motor strength 5/5 in all extremities. Sensory grossly intact. Vital Signs: 19:32 BP 156 / 94; Pulse 88; Resp 18; Temp 98; Pulse Ox 97% ; Weight 72.57 kg; Height 5 ft. wh (152.40 cm); Pain 9/10; 20:30 BP 147 / 89; Pulse 75; Resp 18; Pulse Ox 97% on R/A; wh 22:30 BP 146 / 86; Pulse 74; Resp 18; Pulse Ox 99% on R/A; wh 19:32 Body Mass Index 31.25 (72.57 kg, 152.40 cm) MDM: 19:36 Patient medically screened. rn 23:15 Differential diagnosis: Nonspecific abd pain, gastritis, cholecystitis, appendicitis, rn viral gastroenteritis, UTI. Data reviewed: vital signs, nurses notes, lab test result(s), radiologic studies, CT scan, and as a result, I will discharge patient. Counseling: I had a detailed discussion with the patient and/or guardian regarding: the historical points, exam findings, and any diagnostic results supporting the discharge/admit diagnosis, lab results, radiology results, the need for outpatient follow up, to return to the emergency department if symptoms worsen or persist or if there are any questions or concerns that arise at home. Response to treatment: the patient's symptoms have markedly improved after treatment, and as a result, I will discharge patient. Special discussion: I discussed with the patient/guardian in detail that at this point there is no indication for admission to the hospital. It is understood, however, that if the symptoms persist or worsen the patient needs to return immediately for re-evaluation. ED course: CT shows right sided pyelo, consistent with suprapubic and right sided abd pain, normal wbc, will dc home with abx. Rocephin given here. . 08/22 19:41 Order name: Basic Metabolic Panel; Complete Time: 21: 08/22 19:41 Order name: CBC with Diff; Complete Time: 21: 08/22 19:41 Order name: Creatinine for Radiology; Complete Time: 21: 08/22 19:41 Order name: Hepatic Function; Complete Time: 21: 08/22 19:41 Order name: Lipase; Complete Time: 21: 08/22 19:41 Order name: Urine Microscopic Only; Complete Time: 21: 08/22 19:41 Order name: CT Abd/Pelvis - IV Contrast Only 08/22 19:42 Order name: Urine Dipstick--Ancillary (enter results); Complete Time: 21: [facility] 08/22 19:42 Order name: Urine --Ancillary (enter results); Complete Time: 21: [facility] 08/22 20:28 Order name: CBC Smear Scan; Complete Time: 21:04 EDMI 08/22 22:48 Order name: Urine Culture 08/22 19:41 Order name: IV Saline Lock; Complete Time: 19:54 08/22 19:41 Order name: Labs collected and sent; Complete Time: 19:54 08/22 19:41 Order name: Urine Dipstick-Ancillary (obtain specimen); Complete Time: 19:42 rn Administered Medications: 20:00 Drug: Demerol 25 mg Route: IVP; Site: right antecubital; 23:02 Follow up: Response: No adverse reaction; Pain is decreased; RASS: Alert and Calm (0) 20:02 Drug: Zofran 4 mg Route: IVP; Site: right antecubital; 23:02 Follow up: Response: No adverse reaction; Nausea is decreased 23:09 Drug: Rocephin - (cefTRIAXone) 1 grams Route: IVPB; Infused Over: 30 mins; Site: right antecubital; 23:32 Follow up: Response: No adverse reaction; IV Status: Completed infusion Disposition: 08/22/19 23:16 Discharged to Home. Impression: Pyelonephritis. - Condition is Stable. - Discharge Instructions: Pyelonephritis, Adult. - Prescriptions for Zofran ODT 4 mg Oral tablet,disintegrating - place 1 tablet by TRANSLINGUAL route every 8 hours As needed; 20 tablet. cefpodoxime 100 mg Oral Tablet - take 2 tablet by ORAL route every 12 hours for 10 days take with food; 40 tablet. - Medication Reconciliation Form, Thank You Letter, Antibiotic Education, Prescription Opioid Use form. - Follow up: Private Physician; When: As needed; Reason: Recheck today's complaints, Re-evaluation by your physician. - Problem is new. - Symptoms have improved. Signatures: Dispatcher [employer] Marvin Taylor MD MD rn Habalo, Winsy Corrections: (The following items were deleted from the chart) 23:32 23:16 08/22/2019 23:16 Discharged to Home. Impression: Pyelonephritis. Condition is wh Stable. Forms are Medication Reconciliation Form, Thank You Letter, Antibiotic Education, Prescription Opioid Use. Follow up: Private Physician; When: As needed; Reason: Recheck today's complaints, Re-evaluation by your physician. Problem is new. Symptoms have improved. rn
--- NOTE | 2019-08-22 23:17 | ER ---
Nurse's Notes [facility] Name: Ava Multani Age: 44 yrs Sex: Female : 1975 Arrival Date: 08/22/2019 Time: 18:51 Bed 17 Private MD: Diagnosis: Pyelonephritis Presentation: 08/22 19:29 Presenting complaint: Patient states: C/O RUQ pain and suprapubic pain that has been on wh and off for a couple of weeks now. Pt also C/O nausea. Transition of care: patient was not received from another setting of care. Onset of symptoms was August 22, 2019. Risk Assessment: Do you want to hurt yourself or someone else? Patient reports no desire to harm self or others. Initial Sepsis Screen: Does the patient meet any 2 criteria? No. Patient's initial sepsis screen is negative. Does the patient have a suspected source of infection? Yes: Acute abdominal pain. Care prior to arrival: None. 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 - Coronavirus screen:: The patient has NOT traveled to [place], [place], or [place] in the past 14 days. - Social history:: Smoking status: Patient reports the use of cigarette tobacco products. - Family history:: not pertinent. - Ebola Screening: : Patient negative for fever greater than or equal to 101.5 degrees Fahrenheit, and additional compatible Ebola Virus Disease symptoms Patient denies exposure to infectious person. - Hospitalizations: : No recent hospitalization is reported. Screenin:33 Abuse screen: Denies threats or abuse. Denies injuries from another. Nutritional screening: No deficits noted. Tuberculosis screening: No symptoms or risk factors identified. Fall Risk None identified. Assessment: 19:33 General: Appears in no apparent distress. Behavior is calm, cooperative, appropriate wh for age. Pain: Complains of pain in suprapubic area and right upper quadrant Pain does not radiate. Pain currently is 9 out of 10 on a pain scale. Quality of pain is described as dull. Neuro: Level of Consciousness is awake, alert, obeys commands, Oriented to person, place, time, situation, Appropriate for age. Cardiovascular: Heart tones S1 S2. Respiratory: Airway is patent Respiratory effort is even, unlabored, Respiratory pattern is regular, symmetrical, Breath sounds are clear bilaterally. GI: Abdomen is flat, non-distended, Bowel sounds present X 4 quads. Abd is soft and non tender X 4 quads. : No signs and/or symptoms were reported regarding the genitourinary system. EENT: No signs and/or symptoms were reported regarding the EENT system. Derm: Skin is intact, is healthy with good turgor, Skin is pink, warm \T\ dry. normal. Musculoskeletal: Circulation, motion, and sensation intact. 20:42 Reassessment: Patient appears in no apparent distress at this time. No changes from previously documented assessment. Patient and/or family updated on plan of care and expected duration. Pain level reassessed. Patient is alert, oriented x 3, equal unlabored respirations, skin warm/dry/pink. 22:00 Reassessment: Patient appears in no apparent distress at this time. No changes from previously documented assessment. Patient and/or family updated on plan of care and expected duration. Pain level reassessed. Patient is alert, oriented x 3, equal unlabored respirations, skin warm/dry/pink. Patient states feeling better. Patient states symptoms have improved. 23:30 Reassessment: Patient appears in no apparent distress at this time. No changes from previously documented assessment. Patient and/or family updated on plan of care and expected duration. Pain level reassessed. Patient is alert, oriented x 3, equal unlabored respirations, skin warm/dry/pink. Patient states feeling better. Patient states symptoms have improved. Vital Signs: 19:32 BP 156 / 94; Pulse 88; Resp 18; Temp 98; Pulse Ox 97% ; Weight 72.57 kg; Height 5 ft. wh (152.40 cm); Pain 9/10; 20:30 BP 147 / 89; Pulse 75; Resp 18; Pulse Ox 97% on R/A; 22:30 BP 146 / 86; Pulse 74; Resp 18; Pulse Ox 99% on R/A; 19:32 Body Mass Index 31.25 (72.57 kg, 152.40 cm) ED Course: 18:51 Patient arrived in ED. as 19:29 Ezequiel Nowak is Primary Nurse. 19:30 Triage completed. 19:35 Arm band placed on right wrist. 19:35 Patient has correct armband on for positive identification. Bed in low position. Call light in reach. Side rails up X 1. Pulse ox on. NIBP on. 19:36 Marvin Melissa MD is Attending Physician. rn 20:00 Inserted saline lock: 22 gauge in right antecubital area, using aseptic technique. Blood collected. 20:14 Radiology exam delayed due to lab results not completed at this time. (BUN/Creatinine). bq 20:15 Radiology exam delayed due to test not completed at this time. bq 21:17 CT Abd/Pelvis - IV Contrast Only In Process Unspecified. EDMS 23:31 No provider procedures requiring assistance completed. IV discontinued, intact, bleeding controlled, No redness/swelling at site. Administered Medications: 20:00 Drug: Demerol 25 mg Route: IVP; Site: right antecubital; 23:02 Follow up: Response: No adverse reaction; Pain is decreased; RASS: Alert and Calm (0) 20:02 Drug: Zofran 4 mg Route: IVP; Site: right antecubital; 23:02 Follow up: Response: No adverse reaction; Nausea is decreased 23:09 Drug: Rocephin - (cefTRIAXone) 1 grams Route: IVPB; Infused Over: 30 mins; Site: right antecubital; 23:32 Follow up: Response: No adverse reaction; IV Status: Completed infusion Outcome: 23:16 Discharge ordered by . rn 23:31 Discharged to home ambulatory. 23:31 Condition: stable 23:31 Discharge instructions given to patient, Instructed on discharge instructions, follow up and referral plans. medication usage, POC Demonstrated understanding of instructions, follow-up care, medications, POC Prescriptions given X 2. 23:32 Patient left the ED. Signatures: Dispatcher [employer] Cate Parrish Amelia as Nieto, Roman, MD MD rn Habalo, Winsy Corrections: (The following items were deleted from the chart) 23:31 20:30 Inserted saline lock: 22 gauge in right antecubital area, using aseptic wh technique. Blood collected.
[2019-08-22 23:51] VITALS: TEMP 98
[2019-08-22 23:55] VITALS: BP 146/86; O2SAT 99
--- NOTE | 2019-08-23 12:18 | RAD REPORT ---
EXAM DESCRIPTION: CT - Abdomen Pelvis W Contrast - 08/23/2019 9:54 am CLINICAL HISTORY: 44 years Female ABD PAIN TECHNIQUE: Contiguous axial images obtained through the abdomen and pelvis following intravenous con trast administration. Coronal and sagittal reformatted images provided. This CT exam was performed according to our departmental dose-optimization program, which includes on e or more of the following dose reduction TECHNIQUE: Automated exposure control, adjustment of the mA and/or kV according to patient size, and /or use of iterative reconstruction technique. COMPARISON: No prior exams provided for comparison. FINDINGS: There is striation of the upper pole nephrogram on the right. There is scarring in the pos terior midpole of the right kidney. No hydronephrosis on either side. There are bilateral ovarian cysts, measuring up to 3.4 cm on the right. Normal uterus. No free fluid in the cul-de-sac. No bowel inflammation, obstruction, or free intraperitoneal air. Normal appendix. 4 mm left lower lobe pulmonary nodule. Moderate hepatomegaly without focal lesion. Likely benign thic kening of both adrenal glands. The biliary tree, gallbladder, pancreas, spleen, left kidney, uterus, and urinary bladder are normal. Chronic bilateral spondylolysis at L5 with 7 mm of anterolisthesis. Chronic degenerative changes in t he spine. IMPRESSION: Right-sided pyelonephritis without urinary obstruction. Bilateral ovarian cysts does not require follow-up. 4 mm left lower lobe pulmonary nodule does not require follow-up. Moderate hepatomegaly. Chronic bilateral spondylolysis at L5 with anterolisthesis. Electronically signed by: Carline Cohen MD 08/22/2019 9:54 PM HAIR CUTTER Due to temporary technical issues with the PACS/Fluency reporting system, reports are being signed by the in house radiologist as a courtesy to ensure prompt reporting. The interpreting radiologist is f ully responsible for the content of the report.
== END 2019-08-22 23:32 | disposition home or self-care (01) ==
LOC: ER 18:49
DX: N12 Tubulo-interstitial nephritis, not specified as acute or chronic (principal); I10 Essential (primary) hypertension; E78.00 Pure hypercholesterolemia, unspecified; E11.9 Type 2 diabetes mellitus without complications; Z88.5 Allergy status to narcotic agent
CPT/HCPCS: 36415; 74177; 80048; 80076; 81003; 81015; 81025; 83690; 85025; 87086; 87088; 96365; 96375; 99284; J0696; J2175; J2405; Q9967

== ENCOUNTER 2021-07-16 21:14 | Emergency (ER) | payer SELFPAY ==
--- OUTSIDE RECORDS SUMMARY | 2021-07-16 21:16 | XMS REPORT | Continuity of Care Document ---
:1975 Author Organization [facility] t Address [facility] [place] [address] [place] [id number] Care Team Providers Name Role Phone Unavailable Unavailable Unavailable Problems This patient has no known problems. Allergies, Adverse Reactions, Alerts This patient has no known allergies or adverse reactions. Medications This patient has no known medications. Procedures This patient has no known procedures. Results This patient has no known results.
[2021-07-16 22:23] LABS: Absolute Lymphocytes (CBC) 2.4 K/uL (0.7-4.9); Basophils % 0.5 % (0-1.3); Hematocrit 39.6 % (36.0-45.0); Lymphocytes % 25.7 % (15.3-44.8); MPV 7.7 fL (7.6-11.3)
[2021-07-16 22:31] LABS: ALT/SGPT 42 U/L (12-78); AST/SGOT 21 U/L (15-37); Albumin 3.1 g/dL (3.4-5.0); Alkaline Phosphatase 91 U/L (45-117); BUN Blood Urea Nitrogen 11 mg/dL (7-18); Bicarbonate 23 mmol/L (21-32); Bilirubin Direct < 0.1 mg/dL (0-0.2); Bilirubin Total 0.2 mg/dL (0.2-1.0); Glucose Level 326 mg/dL (74-106); Magnesium 2.1 mg/dL (1.8-2.4); NT PRO-BNP 201 pg/mL (<125); Potassium 3.5 mmol/L (3.5-5.1); Protein, Total 7.1 g/dL (6.4-8.2); Sodium Level 139 mmol/L (136-145); Troponin (Emerg Dept Use Only) < 0.02 ng/mL (0.0-0.045)
[2021-07-16 22:34] LABS: Protime INR 0.99
[2021-07-16] MEDS ORDERED: KETOROLAC 30 MG/ML INJ ONE (22:55)
--- NOTE | 2021-07-17 00:21 | EDPHYS ---
Physician Documentation [facility] Name: Ava Multani Age: 46 yrs Sex: Female : 1975 Arrival Date: 07/16/2021 Time: 21:16 Bed 19 Private MD: ED Physician Shahid Freeman HPI: 07/16 21:51 This 46 yrs old Female presents to ER via Ambulatory with complaints of Chest Pain, kdr Back Pain. 21:51 The patient or guardian reports chest pain that is located primarily in the substernal kdr area, anterior chest wall, left. Onset: suddenly, Patient has had ongoing chest discomfort for several weeks for the last 3 to 4 days has gotten precipitously worse. The pain comes and goes without provocation. There is nothing she can do to remedy or relieve the pain and when he does present. She has not had any diaphoresis or shortness of breath associated directly with the pain. The pain does not radiate. Associated signs and symptoms: The patient has no apparent associated signs or symptoms, Pertinent positives: Pain that radiates into the back. The chest pain is described as aching, sharp, stabbing. Duration: The patient or guardian reports multiple episodes, that are intermittent, that wax and wane, with no pattern. Modifying factors: The symptoms are alleviated by nothing. the symptoms are aggravated by nothing. Severity of pain: At its worst the pain was moderate severe just prior to arrival, in the emergency department the pain is unchanged. The patient has not experienced similar symptoms in the past. The patient has not recently seen a physician. Her father had cardiac issues at the age of about 70. Otherwise there is no significant familial history. 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 - Post-menopause ld1 Historical: - Allergies: 21:21 Codeine; ld1 - Home Meds: 21:21 atorvastatin 10 mg Oral tab 1 tab once daily [Active]; metformin 1,000 mg Oral tab 1 ld1 tab 2 times per day [Active]; lisinopril 5 mg Oral tab 1 tab once daily [Active]; ropinirole 2 mg Oral tab 1 tab twice a day [Active]; glimepiride 4 mg Oral tab 1 tab once daily [Active]; pioglitazone 30 mg oral tab 1 tab once daily [Active]; - PMHx: 21:21 Diabetes - NIDDM; High Cholesterol; Hypertension; restless leg syndrome; ld1 - PSHx: 21:21 None; ld1 - Immunization history:: Adult Immunizations up to date, Client reports receiving the 2nd dose of the Covid vaccine. - Social history:: Smoking status: Patient reports the use of cigarette tobacco products, smokes two packs cigarettes per day. Patient/guardian denies using alcohol, street drugs. ROS: 21:51 Constitutional: Negative for fever, chills, and weight loss, Eyes: Negative for injury, kdr pain, redness, and discharge, Neck: Negative for injury, pain, and swelling, Respiratory: Negative for shortness of breath, cough, wheezing, and pleuritic chest pain, Abdomen/GI: Negative for abdominal pain, nausea, vomiting, diarrhea, and constipation, Back: Negative for injury and pain, : Negative for injury, bleeding, discharge, and swelling, MS/Extremity: Negative for injury and deformity, Skin: Negative for injury, rash, and discoloration, Neuro: Negative for headache, weakness, numbness, tingling, and seizure activity. Psych: Negative for depression, anxiety, suicide ideation, homicidal ideation, and hallucinations, Allergy/Immunology: Negative for hives, rash, and allergies, Endocrine: Negative for neck swelling, polydipsia, polyuria, polyphagia, and marked weight changes, Hematologic/Lymphatic: Negative for swollen nodes, abnormal bleeding, and unusual bruising. 21:51 Cardiovascular: Positive for chest pain, of the anterior aspect of left upper chest, mid-sternal area and left breast, Negative for edema, orthopnea, palpitations, paroxysmal nocturnal dyspnea. Exam: 21:51 Constitutional: This is a well developed, well nourished patient who is awake, alert, kdr and in no acute distress. Head/Face: Normocephalic, atraumatic. Eyes: Pupils equal round and reactive to light, extra-ocular motions intact. Lids and lashes normal. Conjunctiva and sclera are non-icteric and not injected. Cornea within normal limits. Periorbital areas with no swelling, redness, or edema. Neck: Trachea midline, no thyromegaly or masses palpated, and no cervical lymphadenopathy. Supple, full range of motion without nuchal rigidity, or vertebral point tenderness. No Meningismus. Chest/axilla: Normal chest wall appearance and motion. Nontender with no deformity. No lesions are appreciated. Cardiovascular: Regular rate and rhythm with a normal S1 and S2. No gallops, murmurs, or rubs. Normal PMI, no JVD. No pulse deficits. Respiratory: Lungs have equal breath sounds bilaterally, clear to auscultation and percussion. No rales, rhonchi or wheezes noted. No increased work of breathing, no retractions or nasal flaring. Abdomen/GI: Soft, non-tender, with normal bowel sounds. No distension or tympany. No guarding or rebound. No evidence of tenderness throughout. Back: No spinal tenderness. No costovertebral tenderness. Full range of motion. Skin: Warm, dry with normal turgor. Normal color with no rashes, no lesions, and no evidence of cellulitis. MS/ Extremity: Pulses equal, no cyanosis. Neurovascular intact. Full, normal range of motion. Neuro: Awake and alert, GCS 15, oriented to person, place, time, and situation. Cranial nerves II-XII grossly intact. Motor strength 5/5 in all extremities. Sensory grossly intact. Cerebellar exam normal. Normal gait. Psych: Awake, alert, with orientation to person, place and time. Behavior, mood, and affect are within normal limits. 21:51 ECG was reviewed by the Attending Physician. kdr Vital Signs: 21:19 BP 138 / 105; Pulse 99; Resp 18; Temp 98.6(TE); Pulse Ox 99% on R/A; Weight 88.45 kg; ld1 Height 5 ft. 0 in. (152.40 cm); Pain 10/10; 22:00 BP 140 / 70; Pulse 91; Resp 18; Pulse Ox 96% on R/A; sm5 23:00 BP 166 / 84; Pulse 89; Resp 19; Pulse Ox 93% on R/A; sm5 07/17 00:00 BP 149 / 67; Pulse 93; Resp 19; Pulse Ox 96% on R/A; sm5 07/16 21:19 Body Mass Index 38.08 (88.45 kg, 152.40 cm) ld1 MDM: 07/16 21:51 Data reviewed: vital signs, nurses notes, lab test result(s), EKG, radiologic studies. kdr 07/17 00:19 Patient medically screened. kdr 07/16 22:05 Order name: Basic Metabolic Panel; Complete Time: 23:04 EDMS 07/16 22:05 Order name: Liver (Hepatic) Function; Complete Time: 23:04 EDMS 07/16 22:05 Order name: Troponin (Emerg Dept Use Only); Complete Time: 23:04 EDMS 07/16 22:05 Order name: NT PRO-BNP; Complete Time: 23:04 EDMS 07/16 22:05 Order name: Magnesium; Complete Time: 23:04 EDMS 07/16 22:05 Order name: CBC with Automated Diff; Complete Time: 23:04 EDMS 07/16 22:05 Order name: Protime (+INR); Complete Time: 23:04 EDMS 07/16 21:39 Order name: XRAY Chest (1 view) [facility] 07/16 21:39 Order name: EKG; Complete Time: 22:09 [facility] 07/16 21:39 Order name: Cardiac monitoring; Complete Time: 21:42 kdr 07/16 21:39 Order name: EKG - Nurse/Tech; Complete Time: 21:42 kdr 07/16 21:39 Order name: IV Saline Lock; Complete Time: 21:42 kdr 07/16 21:39 Order name: Labs collected and sent; Complete Time: 22:31 kdr 07/16 21:39 Order name: O2 Per Protocol; Complete Time: 21:42 kdr 07/16 21:39 Order name: O2 Sat Monitoring; Complete Time: 21:42 kdr EC/20 21:51 Rate is 89 beats/min. Rhythm is regular, Sinus Rhythm with No ectopy. QRS [place] is kdr Normal. ME interval is normal. QRS interval is normal. QT interval is normal. Clinical impression: NSR w/ Non-specific ST/T Changes. Administered Medications: 23:01 Drug: Ketorolac 15 mg Route: IVP; Site: right antecubital; 5 07/17 00:42 Follow up: Response: Pain is decreased sm5 00:30 Drug: SOLU-Medrol (methylPrednisoLONE) 125 mg Route: IVP; Site: right antecubital; sm5 00:42 Follow up: Response: Medication administered at discharge. sm5 00:31 Drug: Ibuprofen 600 mg Route: PO; sm5 00:42 Follow up: Response: Medication administered at discharge. 5 Disposition Summary: 12/21/21 00:19 Discharge Ordered Location: Home kdr Problem: an ongoing problem kdr Symptoms: have improved kdr Condition: Stable kdr Diagnosis - Chest pain, unspecified kdr - Sciatica, left side kdr - Low back pain kdr Followup: kdr - With: Private Physician - When: 2 - 3 days - Reason: If symptoms return, Further diagnostic work-up, Recheck today's complaints, Continuance of care, Re-evaluation by your physician Discharge Instructions: - Discharge Summary Sheet kdr - Musculoskeletal Pain kdr - Nonspecific Chest Pain, Adult, [id number] kdr - Chronic Back Pain, Koty-ep-[id number] kdr - Sciatica, [id number] kdr Forms: - Medication Reconciliation Form kdr - Thank You Letter kdr - Prescription Opioid Use kdr Prescriptions: - Ibuprofen 600 mg Oral Tablet - take 1 tablet by ORAL route every 6 hours As needed take with food; 30 tablet; kdr Refills: 0, Product Selection Permitted - Tramadol 50 mg Oral Tablet - take 1 tablet by ORAL route every 8 hours As needed as needed; 12 tablet; kdr Refills: 0, Product Selection Permitted - Medrol (Pheonix) 4 mg Oral Tablets, Dose Pack - take 1 tablet by ORAL route as directed - follow package instructions; 1 kdr packet; Refills: 0, Product Selection Permitted Signatures: Dispatcher [employer] EDMS Shahid Freeman MD MD kdr Erika Wolfe RN RN ld1 Cristina Bailey, KYARA RN sm5 Corrections: (The following items were deleted from the chart) 07/16 22:35 22:09 BASIC METABOLIC PANEL+C.LAB.BRZ ordered. EDMS EDMS 22:35 22:09 CBC+H.LAB.BRZ ordered. EDMS EDMS 22:35 22:09 HEPATIC FUNCTION+C.LAB.BRZ ordered. EDMS EDMS 22:35 22:09 MAGNESIUM+C.LAB.BRZ ordered. EDMS EDMS 22:35 22:09 PROBNP+C.LAB.BRZ ordered. EDMS EDMS 22:35 22:09 PROTIME (+INR)+COAG.LAB.BRZ ordered. EDMS EDMS 22:35 22:09 TROPONIN (EMERG DEPT USE ONLY)+C.LAB.BRZ ordered. EDMS EDMS
--- NOTE | 2021-07-17 00:21 | ER ---
Nurse's Notes [facility] Name: Ava Multani Age: 46 yrs Sex: Female : 1975 Arrival Date: 07/16/2021 Time: 21:16 Bed 19 Private MD: Diagnosis: Chest pain, unspecified;Sciatica, left side;Low back pain Presentation: 07/16 21:19 Chief complaint: Patient states: I began having intermittent chest pain for a few ld1 weeks. Here lately it has gotten worse and today I could not stand the pain any longer. Coronavirus screen: At this time, the client does not indicate any symptoms associated with coronavirus-19. Ebola Screen: No symptoms or risks identified at this time. Initial Sepsis Screen: Does the patient meet any 2 criteria? No. Patient's initial sepsis screen is negative. Does the patient have a suspected source of infection? No. Patient's initial sepsis screen is negative. Risk Assessment: Do you want to hurt yourself or someone else? Patient reports no desire to harm self or others. Onset of symptoms was July 16, 2021. 21:19 Method Of Arrival: Ambulatory ld1 21:19 Acuity: ADDIS 3 ld1 Triage Assessment: 21:21 General: Appears in no apparent distress. comfortable, Behavior is calm, cooperative, ld1 appropriate for age. Pain: Complains of pain in chest Pain radiates to back Pain currently is 10 out of 10 on a pain scale. Quality of pain is described as pressure, sharp, shooting, Pain began gradually, Is intermittent. Cardiovascular: Capillary refill < 3 seconds Patient's skin is warm and dry. Chest pain is described as mild. 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 ld1 Historical: - Allergies: 21:21 Codeine; ld1 - Home Meds: 21:21 atorvastatin 10 mg Oral tab 1 tab once daily [Active]; metformin 1,000 mg Oral tab 1 ld1 tab 2 times per day [Active]; lisinopril 5 mg Oral tab 1 tab once daily [Active]; ropinirole 2 mg Oral tab 1 tab twice a day [Active]; glimepiride 4 mg Oral tab 1 tab once daily [Active]; pioglitazone 30 mg oral tab 1 tab once daily [Active]; - PMHx: 21:21 Diabetes - NIDDM; High Cholesterol; Hypertension; restless leg syndrome; ld1 - PSHx: 21:21 None; ld1 - Immunization history:: Adult Immunizations up to date, Client reports receiving the 2nd dose of the Covid vaccine. - Social history:: Smoking status: Patient reports the use of cigarette tobacco products, smokes two packs cigarettes per day. Patient/guardian denies using alcohol, street drugs. Screenin/21 00:37 Abuse screen: Denies threats or abuse. Denies injuries from another. Nutritional 5 screening: No deficits noted. Tuberculosis screening: No symptoms or risk factors identified. Fall Risk No fall in past 12 months (0 pts). No secondary diagnosis (0 pts). IV access (20 points). Ambulatory Aid- None/Bed Rest/Nurse Assist (0 pts). Gait- Normal/Bed Rest/Wheelchair (0 pts) Mental Status- Oriented to own ability (0 pts). Total Patel Fall Scale indicates No Risk (0-24 pts). Assessment: 07/16 22:30 General: Appears uncomfortable, Behavior is cooperative. Pain: Complains of pain in sm5 back and chest. Pain: Complains of pain in back and chest. Neuro: No deficits noted. Level of Consciousness is awake, alert, Oriented to person, place, time, situation. Cardiovascular: No deficits noted. Capillary refill < 3 seconds Patient's skin is warm and dry. Respiratory: No deficits noted. Airway is patent Trachea midline Respiratory effort is even, unlabored, Respiratory pattern is regular, symmetrical. 23:30 Reassessment: No changes from previously documented assessment. Patient and/or family [facility] updated on plan of care and expected duration. Pain level reassessed. 07/17 00:30 Reassessment: No changes from previously documented assessment. 5 Vital Signs: 07/16 21:19 BP 138 / 105; Pulse 99; Resp 18; Temp 98.6(TE); Pulse Ox 99% on R/A; Weight 88.45 kg; ld1 Height 5 ft. 0 in. (152.40 cm); Pain 10; 22:00 BP 140 / 70; Pulse 91; Resp 18; Pulse Ox 96% on R/A; sm5 23:00 BP 166 / 84; Pulse 89; Resp 19; Pulse Ox 93% on R/A; sm5 07/17 00:00 BP 149 / 67; Pulse 93; Resp 19; Pulse Ox 96% on R/A; sm5 07/16 21:19 Body Mass Index 38.08 (88.45 kg, 152.40 cm) ld1 ED Course: 07/16 21:16 Patient arrived in ED. bp1 21:20 Triage completed. ld1 21:21 Shahid Freeman MD is Attending Physician. kdr 21:21 Arm band placed on right wrist. ld1 21:42 Cristina Bailey RN is Primary Nurse. sm5 22:25 Protime (+INR) Sent. sm5 22:25 CBC with Automated Diff Sent. sm5 22:25 NT PRO-BNP Sent. sm5 22:25 Magnesium Sent. sm5 22:25 Liver (Hepatic) Function Sent. sm5 22:25 Troponin (Emerg Dept Use Only) Sent. sm5 22:26 Basic Metabolic Panel Sent. sm5 22:49 XRAY Chest (1 view) In Process Unspecified. EDMS 07/17 00:38 Patient has correct armband on for positive identification. Placed in gown. Bed in low sm5 position. Call light in reach. Side rails up X2. social and human services assistant on. Pulse ox on. NIBP on. 00:38 No provider procedures requiring assistance completed. IV discontinued, intact, sm5 bleeding controlled, No redness/swelling at site. Pressure dressing applied. Patient maintains SpO2 saturation greater than 95% on room air. Administered Medications: 07/16 23:01 Drug: Ketorolac 15 mg Route: IVP; Site: right antecubital; sm5 07/17 00:42 Follow up: Response: Pain is decreased sm5 00:30 Drug: SOLU-Medrol (methylPrednisoLONE) 125 mg Route: IVP; Site: right antecubital; sm5 00:42 Follow up: Response: Medication administered at discharge. sm5 00:31 Drug: Ibuprofen 600 mg Route: PO; sm5 00:42 Follow up: Response: Medication administered at discharge. 5 Outcome: 00:19 Discharge ordered by . kdr 00:38 Discharged to home ambulatory. sm5 00:38 Condition: good 00:38 Discharge instructions given to patient, Instructed on discharge instructions, follow up and referral plans. medication usage, Demonstrated understanding of instructions, follow-up care, medications, Prescriptions given X 3. 00:42 Patient left the ED. sm5 Signatures: Dispatcher [employer] EDMS Shahid Freeman MD MD kdr [place], Brittany bp1 Dibbern, Lauren, RN RN ld1 Cristina Bailey RN RN sm5
[2021-07-17] MEDS ORDERED: IBUPROFEN 200 MG TAB PO ONE (00:26)
[2021-07-17] MEDS ORDERED: IBUPROFEN 400 MG TAB ONE (00:26)
[2021-07-17] MEDS ORDERED: METHYLPREDNISOLONE 125 MG INJ ONE (00:26)
[2021-07-17 01:02] VITALS: TEMP 98.6
[2021-07-17 01:06] VITALS: BP 149/67; O2SAT 96
--- NOTE | 2021-07-17 07:35 | EKG ---
Test Date: 2021-07-16 Test Time: 21:31:03 Assessment Specialist: MERVIN MEASUREMENT RESULTS: Intervals: Rate: 89 LA: 126 QRSD: 68 QT: 384 QTc: 467 [place]: P: 22 LA: 126 QRS: 62 T: 62 INTERPRETIVE STATEMENTS: Normal sinus rhythm Nonspecific T wave abnormality Prolonged QT Abnormal ECG No previous ECG available for comparison Electronically Signed On 07-17-21 07:34:14 PRODUCTION ASSEMBLY SUPERVISOR by Devon Hollins
--- NOTE | 2021-07-17 08:28 | RAD REPORT ---
EXAM DESCRIPTION: Renae Single View07/16/2021 10:50 pm CLINICAL HISTORY: Chest pain COMPARISON: 2018 FINDINGS: The lungs appear clear of acute infiltrate. The heart is normal size IMPRESSION: No acute abnormalities displayed
== END 2021-07-17 00:42 | disposition home or self-care (01) ==
LOC: ER 21:14
DX: R07.9 Chest pain, unspecified (principal); M54.32 Sciatica, left side; M54.50 Low back pain, unspecified; I10 Essential (primary) hypertension; F17.210 Nicotine dependence, cigarettes, uncomplicated; E11.9 Type 2 diabetes mellitus without complications; Z88.5 Allergy status to narcotic agent
CPT/HCPCS: 36415; 71045; 80048; 80076; 83735; 83880; 84484; 85025; 85610; 93005; 96374; 96375; 99285; J2930